=== PATIENT | male | born 1960 | race Caucasian/White ===

== ENCOUNTER 2016-06-07 08:56 | Day surgery (SDC) | payer OTHER ==
[2016-06-07] VITALS (13 sets, daily range): BP systolic 124–168; BP diastolic 73–109; PULSE 18–100; RESP 14–18; Ht 180.3 cm; Wt 104.0 kg
[~2016-06-07] VITALS: Ht 180.3 cm; Wt 104.0 kg
[~2016-06-07 08:56] MED LIST: CEFAZOLIN 1 GM INJ ONE; CEFAZOLIN 2 GM/50 ML (PMX) 50 ML IVPB SCH; SOD CHLORIDE 0.9% 1,000 ML IV SCH
[2016-06-07] MEDS ORDERED: AMLO-147 PO (10:15)
[2016-06-07] MEDS ORDERED: ATOR40TA68 PO (10:15)
[2016-06-07] MEDS ORDERED: LIDOCAINE 1%/EPI 30 ML INJ ONE (10:38)
[2016-06-07] MEDS ORDERED: PROPOFOL 20 ML ONE (11:03)
[2016-06-07] MEDS ORDERED: LIDOCAINE 100 MG SYRINGE ONE (11:03)
[2016-06-07] MEDS ORDERED: SUCCINYLCHOLINE CHLORIDE 100 MG/5 ML SYG IV ONE (11:03)
[2016-06-07] MEDS ORDERED: ONDANSETRON 4 MG INJ ONE (11:04)
[2016-06-07] MEDS ORDERED: FENTAnyl 50 MCG/ML VIAL ONE ×2 (11:04→11:38)
[2016-06-07] MEDS ORDERED: DEXAMETHASONE 4 MG/ML 1 ML INJ ONE (11:04)
[2016-06-07] MEDS ORDERED: MIDAZOLAM 1 MG/ML 2 ML INJ ONE (11:04)
[2016-06-07] MEDS ORDERED: HYDROmorphONE (0.2 MG/ML) 10ML SYG IV PRN ×3 (12:00)
[2016-06-07] MEDS ORDERED: DIPHENHYDRAMINE 50 MG INJ IV PRN (12:00)
[2016-06-07] MEDS ORDERED: ONDANSETRON 4 MG INJ IV PRN (12:00)
[2016-06-07] MEDS ORDERED: FENTAnyl 50 MCG/ML VIAL IV PRN ×2 (12:00)
[2016-06-07] MEDS ORDERED: hydrALAzine 20 MG INJ IV PRN (12:00)
[2016-06-07] MEDS ORDERED: MEPERIDINE 25 MG INJ IV PRN (12:00)
[2016-06-07] MEDS ORDERED: TRIMETHOBENZAMIDE 100 MG/ML VIAL IM PRN (12:00)
[2016-06-07] MEDS ORDERED: LABETALOL HCL 20MG INJ IV PRN (12:00)
[2016-06-07] MEDS ORDERED: EPHEDrine SULFATE 50 MG/5 ML SYG IV PRN (12:00)
[2016-06-07] MEDS ORDERED: MIDAZOLAM 1 MG/ML 2 ML INJ IV PRN (12:00)
[2016-06-07] MEDS: FENTAnyl 50 MCG/ML VIAL IV PRN ×2 (12:26→12:43)
--- NOTE | 2016-06-07 14:22 | OPR ---
DATE OF OPERATION: 06/07/2016 PREOPERATIVE DIAGNOSIS: Right posterior scalp mass. POSTOPERATIVE DIAGNOSIS: Right posterior scalp mass. OPERATION PERFORMED: Resection of right posterior scalp mass. ANESTHESIA: General. ANESTHESIOLOGIST: Dr. Nguyễn SURGEON: Boone Xiong MD CONTENT EDITOR: Darwin De La Torre MD INDICATIONS FOR PROCEDURE: The patient is a 56-year-old male presenting with an enlarging right pos terior scalp mass. He requested resection. He consented and was scheduled for surgery. DESCRIPTION OF PROCEDURE: The patient was brought to the operating theater, placed under general en dotracheal tube anesthesia, and then put in the lateral position with the right side up. The manager mail ior scalp region and posterior auricular region was prepped and draped in usual sterile fashion. An approximately 4 cm incision was made directly over the mass. Subcutaneous tissue was dissected wit h cautery. The well-circumscribed mass was identified and consistent with probable lipoma. It was meticulously dissected from the surrounding tissue. It was removed and sent for permanent pathologi c analysis. The wound was irrigated. Minimal bleeding was controlled with cautery. The skin was t hen infiltrated with 1% lidocaine local anesthetic with epinephrine and then reapproximated with 2-0 nylon sutures in vertical mattress fashion. The patient tolerated the procedure well. The estimat ed blood loss was 20 mL. There were no complications. [facility]. Dictated By: BOONE LANE/NAYA Conf#: [id number] DID#: [id number]
== END 2016-06-07 15:28 | disposition home or self-care (01) ==
LOC: EDSEX 08:56 → SDS 08:56
PROVIDERS: ATTEND Surgery Surgical Oncology
DX: D17.0 Benign lipomatous neoplasm of skin and subcutaneous tissue of head, face and neck (principal); I10 Essential (primary) hypertension; J44.9 Chronic obstructive pulmonary disease, unspecified; F17.200 Nicotine dependence, unspecified, uncomplicated; D17.79 Benign lipomatous neoplasm of other sites
CPT/HCPCS: 11426; 88307; J0330; J0690; J1100; J2001; J2175; J2250; J2405; J3010; Z7512; Z7610